=== PATIENT | male | born 1950 | race Caucasian/White ===

== ENCOUNTER 2017-02-04 09:23 | Emergency (ER) | payer MEDICARE, OTHER ==
--- NOTE | ~2017-02-04 | ER ---
PATIENT'S NAME: CRISTAL DALY [facility] AGE: 66 Y [address] ROOM: [place] [id number] LOCATION: ED ADMIT DATE: 02/04/2017 ER/Outpatient Report DISCHARGE DATE: 02/04/2017 FAMILY PHYSICIAN: Renan De Leon MD ATTENDING PHYSICIAN: Ford Szymanski CHIEF COMPLAINT: Left foot pain and swelling. HISTORY OF PRESENT ILLNESS: Mr. Daly presents for evaluation of left foot pain and swelling which has been present for four days. It is not getting better despite Tylenol and ibuprofen. He has also been using ice. The area is slightly red, slightly swollen, and slightly tender. It is most painful when he has to walk on it or move his left great toe. It is confined to the area of the great toe. The pain does not radiate anywhere. PAST MEDICAL HISTORY: Documented in the record and reviewed by me. SOCIAL HISTORY: Documented in the record and reviewed by me. MEDICATIONS: Documented in the record and reviewed by me. ALLERGIES: DOCUMENTED IN THE RECORD AND REVIEWED BY ME. REVIEW OF SYSTEMS: Performed and negative except as noted in the HPI. PHYSICAL EXAMINATION: VITAL SIGNS: Blood pressure is 138/86, pulse 94, respiratory rate is 20, temperature 96.6, and SpO2 is 95% on room air. Pain is rated at 8/10. GENERAL: Age-appropriate male, recumbent on the exam table with no outward signs of pain or distress. NEUROLOGIC: Awake and alert. No obvious abnormalities. HEENT: Unremarkable. CHEST: Even and unlabored respirations. HEART: Regular rate and rhythm with no murmurs. ABDOMEN: Soft, nontender. EXTREMITIES: Warm, well formed, and well perfused. The left first MTP is notable for some erythema and slight induration. Range of motion of the toe is uncomfortable for the patient, does recreate his pain, but however it is PATIENT'S NAME: CRISTAL DALY [facility] AGE: 66 Y [address] ROOM: [place], [place] [id number] LOCATION: ED ADMIT DATE: 02/04/2017 ER/Outpatient Report DISCHARGE DATE: 02/04/2017 FAMILY PHYSICIAN: Renan De Leon MD ATTENDING PHYSICIAN: Nessa,Ford not excruciating. There is no appreciable warmth or significant erythema associated with it. The other side is unremarkable. The remainder of the toes, the forefoot, and bony prominences and tendon sheaths are nontender to palpation. SKIN: Clean, dry, and intact. No rashes, otherwise. IMPRESSION: Possible gout versus overuse injury and arthritis at the left first MTP. EMERGENCY DEPARTMENT COURSE: The patient was seen and evaluated as above. We will start him on indomethacin for presumed gout. I did offer labs and arthrocentesis, and the patient has decline which I believe today is a reasonable course of action. Based on the fact that this has been present for four days and the patient is with no significant change or progression, I do not think that this is infected. I will have him follow up in 48 to 72 hours with his primary care physician, and he can return immediately if warranted. He does not need inpatient treatment for his pain at this time. He is currently taking care of his who recently had a total knee replacement. All questions were answered. The patient was discharged in good condition. MD SORAIDA RUBIN/ning /[id number] d: 02/04/17 1450 t: 02/13/17 0630, OUTPATIENT REPORT
== END 2017-02-04 10:00 | disposition disaster alternative care site (69) ==
LOC: GMED 09:23
DX: M19.072 Primary osteoarthritis, left ankle and foot (principal); Z79.82 Long term (current) use of aspirin; Z79.899 Other long term (current) drug therapy